=== PATIENT | female | born 1975 | race Caucasian/White ===

== ENCOUNTER → 2016-05-30 | Outpatient (CLI) | payer MEDICARE, OTHER ==
[~2016-05-30] MED LIST: ANTIVERT PO; AUGMENTIN PO; BACTRIM DS TABL1 TA1 PO; BP PILL; CAPOZIDE; CLARITIN10 MG PO; DETROL LA2 MG; FAMVIR500 MG PO; KEFLEX500 MG PO; LIPITOR; LIPITOR PO; LORTAB 5/500 TA1 TA2 PO; MOBIC; NAPROSYN500 MG PO; NAPROXEN25 GM; PREDNISONE50 MG PO; VICODIN 5/1 TAB 5/50 PO; ZOFRAN PO; ZYRTEC10 M2
--- NOTE | ~2016-05-30 | CR229 ---
[facility] A Service of [facility] & [facility] RADIOLOGY TEXT RESULTS PATIENT: THUY LIU LOCATION: [facility] : 71 UNIT #: [id number] AGE: [address]: Annie Cedeno SEX: F ORDER DR: [id number] [address] [address] [id number] O MR#: [id number] Acc #: [id number] NAME: THUY LIU. : 1975 SEX: F STUDY DATE/TIME: 05/30/2016 8:38 UNIT: [facility] ROOM: STUDY DESCRIPTION: CR Shoulder Min 2 View Lt Attending Physician: Annie Cedeno A.P.R.N. Referring Physician: Annie Cedeno A.P.R.N. Ordering Physician: Annie Cedeno A.P.R.N. Primary Care Physician: Annie Cedeno A.P.R.N. MEDICAL IMAGING REPORT This report is preliminary unless electronic signature is present. EXAM Left shoulder, 05/30/2016 HISTORY 41-year-old female with left shoulder pain for 1 week. COMPARISON None. FINDINGS 3 views of the left shoulder demonstrate no acute fracture or dislocation. Acromioclavicular joint is within normal limits. Soft tissues are unremarkable. IMPRESSION Unremarkable left shoulder. Dictated by... Mikal Pollack M.D. THIS IS AN ELECTRONICALLY VERIFIED REPORT Mikal Pollack M.D. at 06/01/2016 3:56 PM SAYDA/padilla TD: 05/30/2016 20:45 JOB #: [id number] MEDICAL IMAGING REPORT
--- NOTE | ~2016-05-30 | CR169 ---
[facility] A Service [facility] RADIOLOGY TEXT RESULTS PATIENT: THUY LIU LOCATION: [facility] : 71 UNIT #: [id number] AGE: [address]: Annie Cedeno SEX: F ORDER DR: [id number] [address] [address] [id number] O MR#: [id number] Acc #: [id number] NAME: THUY LIU. : 1975 SEX: F STUDY DATE/TIME: 05/30/2016 8:38 UNIT: [facility] ROOM: STUDY DESCRIPTION: CR Knee 2 Views Lt Attending Physician: Annie Cedeno A.P.R.N. Referring Physician: Annie Cedeno A.P.R.N. Ordering Physician: Annie Cedeno A.P.R.N. Primary Care Physician: Annie Cedeno A.P.R.N. MEDICAL IMAGING REPORT This report is preliminary unless electronic signature is present. EXAM Left knee, 05/30/2016 HISTORY 41-year-old female with left knee pain for 1 week. COMPARISON None. FINDINGS 2 views of the left knee demonstrate no acute fracture or dislocation. No joint effusion. Mild degenerative change of the patellofemoral joint. Mild medial compartment joint space narrowing. There is a 1.2 cm partially calcified loose body projecting over the posterior aspect of the knee. IMPRESSION 1. No acute fracture or dislocation. 2. Mild patellofemoral and medial compartment arthrosis. 1.2 cm partially calcified loose body projects over the posterior aspect of the knee. Dictated by... Mikal Pollack M.D. THIS IS AN ELECTRONICALLY VERIFIED REPORT Mikal Pollack M.D. at 06/01/2016 3:56 PM SAYDA/padilla TD: 05/30/2016 20:47 JOB #: [id number] [facility] A Service [facility] RADIOLOGY TEXT RESULTS PATIENT: THUY LIU LOCATION: [facility] : 71 UNIT #: [id number] AGE: [address]: Annie Cedeno SEX: F ORDER DR: MEDICAL IMAGING REPORT
== END | disposition home or self-care (01) ==
LOC: SRAD 08:26
DX: M25.562 Pain in left knee (principal); M25.512 Pain in left shoulder; M17.12 Unilateral primary osteoarthritis, left knee; M23.42 Loose body in knee, left knee
CPT/HCPCS: 73030; 73560

== ENCOUNTER → 2016-07-07 | Outpatient (CLI) | payer MEDICARE, OTHER ==
--- NOTE | ~2016-07-07 | MR103 ---
[facility] A Service of [facility] & [facility] RADIOLOGY TEXT RESULTS PATIENT: THUY LIU LOCATION: [facility] : 71 UNIT #: [id number] AGE: [address]: iWnnie Navarrete SEX: F ORDER DR: [id number] [facility] [address] [place], [place] [address] [id number] O MR#: [id number] Acc #: [id number] NAME: THUY LIU. : 1975 SEX: F STUDY DATE/TIME: 07/07/2016 14:43 UNIT: [facility] ROOM: STUDY DESCRIPTION: MR Knee Wo Contrast Lt Attending Physician: Winnie Navarrete P.A.-C. Referring Physician: Winnie Navarrete P.A.-C. Ordering Physician: Winnie Navarrete P.A.-C. Primary Care Physician: Annie Cedeno A.P.R.N. MRI CENTER REPORT This report is preliminary unless electronic signature is present. EXAM Left knee MRI without contrast, 07/07/2016 HISTORY 41-year-old female with chronic left knee pain since childhood. Medial and anterior pain. Patient states history of multiple falls. No prior left knee surgery. COMPARISON Left knee x-rays, 05/30/2016 TECHNIQUE Routine unenhanced multiplanar, multisequence high field MR imaging of the left knee was performed. FINDINGS There is a complex longitudinal horizontal oblique tear of the posterior horn medial meniscus. There is also a suspected vertical radial component involving the posterior horn near the posterior root attachment. There is a displaced meniscal fragment versus loose body located just posterior to the posterior root attachment of the medial meniscus, measuring at least 1.6 cm in size. Lateral meniscus remains intact. Cruciate and collateral ligaments are intact. Extensor mechanism is intact. Small joint effusion. No significant popliteal cyst. There is high-grade chondromalacia of the medial and lateral patellar facets as well as the median ridge of the patella with mild subchondral marrow edema. Moderate to high-grade chondromalacia of the medial femoral trochlea. Lateral compartment articular cartilage is intact. There is [id number] grade chondromalacia along the weightbearing surfaces of [facility] A Service of [facility] & [facility] RADIOLOGY TEXT RESULTS PATIENT: THUY LIU [facility] : 71 UNIT #: [id number] AGE: [address]: Winnie Navarrete SEX: F ORDER DR: the medial compartment. High-grade chondromalacia of the posterior medial non-weightbearing surface of the medial femoral condyle. Remainder of the bone marrow signal is within expected limits. Visualized musculature is unremarkable. IMPRESSION 1. Complex tear of the posterior horn medial meniscus, detailed above. There is a suspected flipped meniscal fragment versus loose body located just posterior to the posterior root attachment of the medial meniscus measuring at least 1.6 cm in size. 2. No acute ligament injury. 3. High-grade chondromalacia patellofemoral joint, detailed above. Moderate to high-grade chondromalacia in the medial compartment, detailed above. 4. Small joint effusion. Dictated by... Mikal Pollack M.D. THIS IS AN ELECTRONICALLY VERIFIED REPORT Mikal Pollack M.D. at 07/08/2016 3:44 PM Maximilian TD: 07/08/2016 12:16 JOB #: [id number] MRI CENTER REPORT Page 1 of 1 COPY
== END | disposition home or self-care (01) ==
LOC: CMRI 13:57
DX: M17.12 Unilateral primary osteoarthritis, left knee (principal); M25.562 Pain in left knee; S83.232A Complex tear of medial meniscus, current injury, left knee, initial encounter; M94.262 Chondromalacia, left knee; M25.462 Effusion, left knee
CPT/HCPCS: 73721